=== PATIENT | female | born 1960 | race African-American/Black ===

== ENCOUNTER → 2018-08-27 | Outpatient (CLI) | payer OTHER ==
--- NOTE | 2018-08-27 16:56 | RAD ---
DATE: 08/27/2018 EXAM: DIGITAL DIAGNOSTIC RT HISTORY: Patient has just undergone ultrasound-guided biopsy of a right breast mass with clip marker placement. COMPARISON: 07/28/2018 right breast ultrasound and 07/26/2018 right diagnostic mammographic images This study was interpreted with the benefit of Computerized Aided Detection (CAD). Breast Density: SCATTERED The breast parenchyma shows scattered fibroglandular densities. Breast parenchyma level B. FINDINGS: Successful placement of the biopsy clip marker along the posterior margin of the patient's known right breast 6:00 mass. No hematoma. IMPRESSION: Biopsy clip marker at the appropriate site. BI-RADS CATEGORY: 4 SUSPICIOUS ABNORMALITY- BIOPSY SHOULD BE CONSIDERED RECOMMENDED FOLLOW-UP: BIO BIOPSY RECOMMENDED PQRS compliance statement: Patient information was entered into a reminder system with a target due date pending pathology report for the next mammogram. Mammography is a sensitive method for finding small breast cancers, but it does not detect them all and is not a substitute for careful clinical examination. A negative mammogram does not negate a clinically suspicious finding and should not result in delay in biopsying a clinically suspicious abnormality. "Our facility is accredited by the [employer] Mammography Program."
--- NOTE | 2018-08-27 17:51 | RAD ---
Examination: US GUID NDL PLACE/ASPI/BX History: right breast biopsy Comparison/Correlation: None Findings: Risks and benefits of ultrasound-guided core needle biopsy were discussed with the patient. Informed consent was obtained. Preliminary ultrasound imaging was performed for localization purposes. Cleansing with Betadine swabs was then performed. Sterile drapes were placed. Sterile probe cover and sterile gel utilized. 5 cc 1 percent lidocaine was administered along inferolateral approach. Small scalpel incision was made. An introducer was placed. 12-gauge core biopsy needle was placed. 6 passes were made. Specimens were placed in a formalin jar. Biopsy clip marker was then placed under ultrasound guidance. Patient tolerated the procedure well without immediate complications. Impression: Successful right breast core biopsy by ultrasound guidance. Specimens sent to the lab. Electronically signed by: Kapil Andrade MD (08/27/2018 5:48 PM) [facility]
--- NOTE | 2018-08-31 15:06 | PATHOLOGY ---
[facility] Accession Number: [id number] . 01 Material submitted: . breast - RIGHT BREAST TISSUE 6:30. Modifiers: right . 01 Clinical history: . Rt breast mass . 02 Diagnosis: Breast tissue, right breast mass 6:30 needle biopsies: - Proliferative fibrocystic changes with the following components: - Florid ductal epithelial hyperplasia. - Stromal fibrosis. - Duct ectasia. - Cystic change. - Apocrine metaplasia. - Chronic inflammation, focal. . (JPM:poly; 08/31/2018) QMS/08/31/2018 . 02 Comment: There is no atypia or evidence of malignancy. . 02 Electronically signed: . Thee Walton MD, Pathologist NPI- [id number] . 01 Gross description: . Received in formalin labeled "Mayela Drummond, right breast 630," are multiple needle cores of yellow-brown fibrofatty tissue measuring 1.5 x 0.9 x 0.3 cm in aggregate dimensions. The specimen is submitted entirely in cassettes A1 through A3. The cold ischemic time is 10 minutes. The total formalin fixation time is 68 hours and 8 minutes. ([facility]; 08/30/2018) XDC/XDC . 02 Pathologist provided ICD-10: N60.11, N60.31, N60.41, N60.81, N61.0 . 02 CPT . 106622 Specimen Comment: Report sent to / DR AYALA Performed at: 01 [facility] [address], [place] [id number] MD Niels Bain MD Phone: [phone] Performed at: 02 [facility] [address], [place] [id number] MD Thee Walton MD Phone: [phone]
== END | disposition home or self-care (01) ==
LOC: US 12:45
PROVIDERS: ATTEND Nurse Practitioner Family
DX: N60.31 Fibrosclerosis of right breast (principal); N60.41 Mammary duct ectasia of right breast; N60.81 Other benign mammary dysplasias of right breast; N61.0 Mastitis without abscess; Z88.4 Allergy status to anesthetic agent; F17.210 Nicotine dependence, cigarettes, uncomplicated; E11.9 Type 2 diabetes mellitus without complications; Z79.84 Long term (current) use of oral hypoglycemic drugs; Z90.12 Acquired absence of left breast and nipple; Z98.890 Other specified postprocedural states
CPT/HCPCS: 19083; 77065; 88305; C1713; 19081; 76942